=== PATIENT | female | born 1955 | race Caucasian/White ===

== ENCOUNTER 2024-11-07 20:28 | Emergency (ER) | payer OTHER ==
[~2024-11-07] VITALS: Ht 170.2 cm; Wt 61.2 kg
[~2024-11-07 20:28] MED LIST: CHOL10002 PO; COPAXONE40 MG/1 ML IM; FISH OIL 1,0001 EAC1 PO; Multiple Vitam1 EAC1 PO; VITAMIN C500 MG PO
[2024-11-07 21:06] VITALS: BP 191/93
[2024-11-07] MEDS ORDERED: Diphth,Pertuss(Acell),Tet Vac 0.5 ML VIAL IM ONE (21:10)
== END 2024-11-08 00:22 | disposition home or self-care (01) ==
LOC: ER 20:28
DX: S61.411A Laceration without foreign body of right hand, initial encounter (principal); W26.0XXA Contact with knife, initial encounter; Z23 Encounter for immunization; Z79.899 Other long term (current) drug therapy
CPT/HCPCS: 12004; 90471; 90715; 99282-25

== ENCOUNTER 2024-11-26 01:09 | Day surgery (SDC) | payer OTHER ==
[2024-11-26] MEDS ORDERED: Lidocaine HCl 4% Cream 5 GM ONE (08:03)
== END 2024-11-26 23:00 | disposition home or self-care (01) ==
LOC: WOUND 01:09
DX: T81.328A Disruption or dehiscence of closure of other specified internal operation (surgical) wound, initial encounter (principal); Y83.8 Other surgical procedures as the cause of abnormal reaction of the patient, or of later complication, without mention of misadventure at the time of the procedure
CPT/HCPCS: A9270; G0463